=== PATIENT | male | born 1945 | race Caucasian/White ===

== ENCOUNTER 2016-10-03 10:14 | Emergency (ER) | payer OTHER ==
[~2016-10-03] VITALS: Ht 172.7 cm; Wt 105.4 kg
[~2016-10-03 10:14] MED LIST: ACTOS30 MG PO; AMARYL4 MG PO; ATORVASTATIN CA20 MG PO; CLONIDINE HCL0.1 MG PO; COREG12.5 M1 PO; FLEXERIL5 MG PO; HYDRODIURIL,ORE25 MG PO; LISINOPRIL40 MG PO; LYRICA25 MG PO; LYRICA50 MG PO; PERCOCET 5/31 TABLET PO; ZOFRAN4 MG PO
[2016-10-03 10:40] LABS: POINT-OF-CARE METER ID UU13113778
[2016-10-03 13:11] LABS: HEMATOCRIT 45.1 % (38.0-50.0); MCH 29.1 PG (29.0-34.0); MCHC 34.8 G/DL (30.0-36.0); MCV 83.7 FL (86-99); MEAN PLAT.VOLUME 11.7 uM^3 (9.0-12.4); PLATELET COUNT 139 K/uL (156-360); RBC DIS.WIDTH-CV 13.6 % (11.8-14.6); RBC DIS.WIDTH-SD 41.4 % (39-53); RED BLOOD COUNT 5.39 M/uL (4.00-5.50); WHITE BLOOD COUNT 7.9 K/uL (4.1-10.2)
[2016-10-03 13:13] LABS: ADD MIUA? YES; BILIRUBIN NEGATIVE; BLOOD SMALL; COLOR YELLOW ((YELLOW)); GLUCOSE (STRIP) >=500; KETONES 5; LEUKOCYTES NEGATIVE; NITRITE NEGATIVE; PROTEIN (STRIP) NEGATIVE; SPECIFIC GRAVITY 1.017 (1.000-1.030); UROBILINOGEN 0.2 MG/DL (0.2-1.0)
[2016-10-03 13:21] LABS: BACTERIA NONE SEEN /HPF; EPITHELIAL CELLS RARE /HPF; MUCUS TRACE /LPF; RED BLOOD CELLS 0-5 /HPF (0-5); UCUL ADDED? NO; WHITE BLOOD CELLS 0-5 /HPF (0-5)
[2016-10-03 13:22] LABS: CHLORIDE 99 mEq/L (99-109); POTASSIUM 4.6 mEq/L (3.7-5.4); SODIUM 138 mEq/L (136-147)
[2016-10-03 13:24] LABS: GLUCOSE 332 mg/dL (70-99)
[2016-10-03 13:26] LABS: ANION GAP 13 MEQ/L (2-14); TOTAL BILIRUBIN 1.4 mg/dL (0.0-1.0)
[2016-10-03 13:28] LABS: ALKALINE PHOSPHATASE 121 IU/L (3-129); GFR ESTIMATE (CALCULATED) 54 mL/min/
[2016-10-03 13:29] LABS: UREA NITROGEN (BUN) 19 mg/dL (9-23)
[2016-10-03 13:31] LABS: LIPASE 17 U/L (1.0-51.0)
[2016-10-03 13:59] LABS: DIRECT BILIRUBIN 0.5 mg/dL (0.0-0.3)
[2016-10-03] MEDS ORDERED: HUMULIN N100 UNIT/2 SC (14:38)
[2016-10-03] MEDS ORDERED: AMLODIPINE BES2.5 MG PO (14:39)
[2016-10-03] MEDS ORDERED: ULTRACET1 TABLET PO (15:40)
[2016-10-03 16:02] VITALS: BP 159/76
== END 2016-10-03 16:02 | disposition home or self-care (01) ==
LOC: EME 10:14
DX: R10.11 Right upper quadrant pain (principal); E11.65 Type 2 diabetes mellitus with hyperglycemia; D69.6 Thrombocytopenia, unspecified; E78.5 Hyperlipidemia, unspecified; I10 Essential (primary) hypertension
CPT/HCPCS: 74176; 80053; 81003; 82248; 82948; 83690; 85027; 99281; 99284; J3010

== ENCOUNTER 2017-12-23 08:21 | Emergency (ER) | payer OTHER ==
[~2017-12-23] VITALS: Ht 177.8 cm; Wt 109.4 kg
[~2017-12-23 08:21] MED LIST changes: +AMLODIPINE BES2.5 MG PO; +HUMULIN N100 UNIT/2 SC; +ULTRACET1 TABLET PO
[2017-12-23 12:25] LABS: HEMOGLOBIN 15.1 G/DL (12.5-16.6); MCHC 34.3 G/DL (30.0-36.0); MCV 87.3 FL (86-99); PLATELET COUNT 128 K/uL (156-360); RBC DIS.WIDTH-SD 41.2 % (39-53); RED BLOOD COUNT 5.04 M/uL (4.00-5.50); WHITE BLOOD COUNT 7.2 K/uL (4.1-10.2)
[2017-12-23 12:32] LABS: PTT 29.6 SEC (25-37)
[2017-12-23 12:39] LABS: CHLORIDE 101 mEq/L (99-109); SODIUM 140 mEq/L (136-147)
[2017-12-23 12:40] LABS: GLUCOSE 135 mg/dL (70-99)
[2017-12-23 12:44] LABS: CREATININE 1.2 mg/dL (0.6-1.3); GFR ESTIMATE (CALCULATED) > 59 mL/min/ (58.99-99999)
[2017-12-23 12:45] LABS: UREA NITROGEN (BUN) 17 mg/dL (9-23)
[2017-12-23] MEDS ORDERED: LOVENOX100 MG/1 M SC (13:05)
[2017-12-23] MEDS ORDERED: COUMADIN5 MG PO (13:05)
[2017-12-23 14:00] VITALS: BP 132/68
== END 2017-12-23 14:01 | disposition home or self-care (01) ==
LOC: EXP 08:21
PROVIDERS: Emergency Medicine
DX: I82.442 Acute embolism and thrombosis of left tibial vein (principal); E78.5 Hyperlipidemia, unspecified; I10 Essential (primary) hypertension; E11.42 Type 2 diabetes mellitus with diabetic polyneuropathy; Z79.4 Long term (current) use of insulin; H91.90 Unspecified hearing loss, unspecified ear; Z88.0 Allergy status to penicillin
CPT/HCPCS: 73630; 80048; 85027; 85610; 85730; 93971; 99281; 99285; J1650